=== PATIENT | male | born 1970 | race Caucasian/White ===

== ENCOUNTER 2018-08-03 09:15 | Outpatient (CLI) | payer OTHER, SELFPAY ==
--- NOTE | 2018-08-03 09:11 | DI.RAD_ITS ---
SYMPTOMS/DIAGNOSIS: LT FOOT PAIN AND NUMBNESS LEFT FOOT: Three views. No acute fracture, dislocation or suspicious lytic or sclerotic lesion is seen. The joint spaces are well maintained. There is an enthesophyte at the posterior calcaneus. The soft tissues are otherwise unremarkable. IMPRESSION: No acute abnormality.
== END 2018-08-03 09:35 ==
PROVIDERS: Visit Provider Student in an Organized Health Care Education/Training Program
DX: M79.672 Pain in left foot (principal); R20.0 Anesthesia of skin; M77.32 Calcaneal spur, left foot
CPT/HCPCS: 73630